=== PATIENT | male | born 1995 | race Caucasian/White ===

== ENCOUNTER 2019-02-22 11:51 | Emergency (ER) | payer MEDICAID ==
[~2019-02-22] VITALS: Ht 190.5 cm; Wt 118.2 kg
[2019-02-22 12:24] VITALS: Ht 190.5 cm; Wt 118.2 kg
[2019-02-22] MEDS ORDERED: LAMICTAL25 MG PO (12:26)
[2019-02-22] MEDS ORDERED: TORADOL10 MG PO (14:05)
[2019-02-22 14:28] VITALS: BP 117/71
== END 2019-02-22 14:29 | disposition home or self-care (01) ==
LOC: D.ER 11:51
DX: S69.91XA Unspecified injury of right wrist, hand and finger(s), initial encounter (principal); W22.8XXA Striking against or struck by other objects, initial encounter; Y93.89 Activity, other specified; Y92.89 Other specified places as the place of occurrence of the external cause; M25.531 Pain in right wrist

== ENCOUNTER 2019-03-27 03:17 | Emergency (ER) | payer MEDICAID ==
[~2019-03-27] VITALS: Ht 190.5 cm; Wt 104.5 kg
[~2019-03-27 03:17] MED LIST: LAMICTAL25 MG PO; TORADOL10 MG PO
[2019-03-27 03:21] VITALS: Ht 190.5 cm; Wt 104.5 kg
[2019-03-27] MEDS ORDERED: CLEOCIN HCL300 MG PO (04:09)
[2019-03-27] MEDS ORDERED: HYDROCODON-ACE1 EAC2 PO (04:09)
[2019-03-27 05:00] VITALS: BP 122/70
== END 2019-03-27 05:00 | disposition home or self-care (01) ==
LOC: D.ER 03:17
DX: K04.7 Periapical abscess without sinus (principal); S02.5XXA Fracture of tooth (traumatic), initial encounter for closed fracture; X58.XXXA Exposure to other specified factors, initial encounter; Y93.89 Activity, other specified; Y92.89 Other specified places as the place of occurrence of the external cause

== ENCOUNTER 2019-05-30 15:50 | Emergency (ER) | payer MEDICAID ==
[~2019-05-30] VITALS: Ht 190.5 cm; Wt 104.5 kg
[~2019-05-30 15:50] MED LIST changes: +CLEOCIN HCL300 MG PO; +HYDROCODON-ACE1 EAC2 PO
[2019-05-30 16:02] VITALS: Ht 190.5 cm; Wt 104.5 kg
[2019-05-30] MEDS ORDERED: KEFLEX500 MG PO (17:25)
[2019-05-30] MEDS ORDERED: TYLENOL W/CODEI1 TAB PO (17:25)
[2019-05-30 17:37] VITALS: BP 119/68
== END 2019-05-30 17:38 | disposition home or self-care (01) ==
LOC: D.ER 15:50
DX: S61.411A Laceration without foreign body of right hand, initial encounter (principal); W25.XXXA Contact with sharp glass, initial encounter; Y93.89 Activity, other specified; Y92.89 Other specified places as the place of occurrence of the external cause

== ENCOUNTER 2019-06-03 19:29 | Emergency (ER) | payer MEDICAID ==
[~2019-06-03] VITALS: Ht 190.5 cm; Wt 106.8 kg
[2019-06-03 19:29] VITALS: Ht 190.5 cm; Wt 106.8 kg
[~2019-06-03 19:29] MED LIST changes: +KEFLEX500 MG PO; +TYLENOL W/CODEI1 TAB PO
[2019-06-03 19:49] LABS: BASOPHILS 0.2 % (0-2); EOSINOPHILS 0.4 % (0-7); HEMATOCRIT 43.2 % (42.0-54.0); HEMOGLOBIN 15.5 g/dL (13.5-17.5); IMMATURE GRANULOCYTES 0.5 % (0-5); MCH 30.3 pg (26.0-34.0); MCHC 35.9 g/dL (31.0-37.0); MCV 84.5 fL (80.0-100.0); MEAN PLATELET VOLUME 9.8 fL (7.4-10.4); MONOCYTES 7.4 % (2-11); NEUTROPHILS 77.5 % (40-80); PLATELET COUNT 232 10x3/uL (130-400); RBC 5.11 10x6/uL (4.20-6.10); WBC 15.1 10x3/uL (4.8-10.8)
[2019-06-03 19:57] LABS: INR 1.18 (0.85-1.17); PROTIME 14.5 SECONDS (11.6-15.0)
[2019-06-03 19:58] LABS: APTT 73.7 SECONDS (22.8-39.4)
[2019-06-03 20:05] LABS: ALBUMIN 5.1 g/dL (3.4-5.0); ALKALINE PHOSPHATASE 123 U/L (46-116); ALT (SGPT) 37 U/L (10-68); BILIRUBIN - TOTAL 0.47 mg/dL (0.2-1.3); CALC OSMOLALITY 277 mosm/kg (275-300); CALCIUM 10.1 mg/dL (8.5-10.1); CARBON DIOXIDE 26.2 mmol/L (21.0-32.0); CHLORIDE - SERUM 98 mmol/L (98-107); CREATININE - SERUM 1.9 mg/dL (0.6-1.3); GLUCOSE 87 mg/dL (74-106); PROTEIN - SERUM 9.1 g/dL (6.4-8.2); SODIUM 138 mmol/L (136-145); UREA NITROGEN 21 mg/dL (7-18); eGFR NON AFRICAN AMERICAN 46 mL/min (90-120)
[2019-06-03 20:14] LABS: CKMB 0.9 U/L (0.0-3.6); CREATINE KINASE 114 UL (21-232); MAGNESIUM - SERUM 2.3 mg/dL (1.8-2.4); TROPONIN-I < 0.017 ng/mL (0.000-0.060)
[2019-06-03 22:07] LABS: COLOR YELLOW (YELLOW)
[2019-06-03 22:08] LABS: APPEARANCE CLEAR (CLEAR); BILIRUBIN NEGATIVE (NEGATIVE); GLUCOSE NEGATIVE (NEGATIVE); KETONE NEGATIVE (NEGATIVE); NITRITE NEGATIVE (NEGATIVE); PROTEIN TRACE mg/dL (NEGATIVE); SPECIFIC GRAVITY 1.025 (1.005-1.020); UROBILINOGEN NORMAL (NORMAL)
[2019-06-03 22:09] LABS: BACTERIA FEW /hpf (NONE SEEN); CALCIUM OXALATE CRYSTALS 0-5 /hpf (NONE SEEN); HYALINE CAST 0-5 /lpf (NONE SEEN); WHITE CELLS - URINE 0-5 /hpf (0-5)
[2019-06-03 22:16] LABS: UDS - AMPHET NEGATIVE QUAL (NEGATIVE); UDS - BARB NEGATIVE QUAL (NEGATIVE); UDS - BENZO NEGATIVE QUAL (NEGATIVE); UDS - COCAINE NEGATIVE QUAL (NEGATIVE); UDS - OPIATE POSITIVE QUAL (NEGATIVE); UDS - PCP NEGATIVE QUAL (NEGATIVE); UDS - THC NEGATIVE QUAL (NEGATIVE)
[2019-06-03 22:53] VITALS: BP 110/51
== END 2019-06-03 22:53 | disposition home or self-care (01) ==
LOC: D.ER 19:29
PROVIDERS: Family Medicine
DX: E86.0 Dehydration (principal); T67.8XXA Other effects of heat and light, initial encounter; X58.XXXA Exposure to other specified factors, initial encounter; Y93.89 Activity, other specified; Y92.89 Other specified places as the place of occurrence of the external cause; R07.81 Pleurodynia

== ENCOUNTER 2019-09-15 01:01 | Observation (INO) | payer MEDICAID ==
[~2019-09-15] VITALS: Ht 190.5 cm; Wt 127.3 kg
[2019-09-15] MEDS ORDERED: TEGRETOL200 MG PO (01:07)
[2019-09-15] MEDS ORDERED: ATARAX 25 MG TA25 MG PO (01:08)
[2019-09-15] MEDS ORDERED: [UNRECOGNIZED DRUG - REMARK] (01:08)
[2019-09-15 01:42] LABS: BASOPHILS 0.6 % (0-2); HEMATOCRIT 44.4 % (42.0-54.0); HEMOGLOBIN 14.9 g/dL (13.5-17.5); IMMATURE GRANULOCYTES 0.6 % (0-5); LYMPHOCYTES 29.4 % (15-50); MCH 29.4 pg (26.0-34.0); MCHC 33.6 g/dL (31.0-37.0); MCV 87.7 fL (80.0-100.0); MEAN PLATELET VOLUME 9.6 fL (7.4-10.4); MONOCYTES 9.4 % (2-11); PLATELET COUNT 214 10x3/uL (130-400); RBC 5.06 10x6/uL (4.20-6.10); RDW 12.6 % (11.5-14.5); WBC 8.4 10x3/uL (4.8-10.8)
[2019-09-15 01:53] LABS: CALC OSMOLALITY 276 mosm/kg (275-300); CALCIUM 8.2 mg/dL (8.5-10.1); CARBON DIOXIDE 27.9 mmol/L (21.0-32.0); CHLORIDE - SERUM 105 mmol/L (98-107); CREATININE - SERUM 0.8 mg/dL (0.6-1.3); GLUCOSE 84 mg/dL (74-106); POTASSIUM - SERUM 4.2 mmol/L (3.5-5.1); SODIUM 140 mmol/L (136-145); UREA NITROGEN 11 mg/dL (7-18); eGFR NON AFRICAN AMERICAN > 90 mL/min (90-120)
[2019-09-15 01:56] LABS: APTT 30.1 SECONDS (22.8-39.4); INR 1.03 (0.85-1.17)
[2019-09-15 01:59] LABS: ALBUMIN 3.8 g/dL (3.4-5.0); ALKALINE PHOSPHATASE 110 U/L (46-116); ALT (SGPT) 65 U/L (10-68); AMYLASE - SERUM 59 U/L (25-115); BILIRUBIN - TOTAL 0.12 mg/dL (0.2-1.3); LIPASE 115 U/L (73-393); PROTEIN - SERUM 7.3 g/dL (6.4-8.2)
--- NOTE | 2019-09-15 02:55 | NUR ---
DR BURNS NOTIFIED AND REVIEWED PT'S BEHAVIOR AND ASSESSMENT RESULTS. PT IS A LOW RISK PER DR BURNS. DR BURNS STATED TO GIVE RESOURCES TO PT AT TIME OF DISCHARGE. NO FURTHER ORDERS AT THIS TIME. RSOURCES REVIEWED WITH PT AND HE VERBALIZED UNDERSTANDING.
[2019-09-15 05:07] VITALS: BP 127/74; Ht 190.5 cm; Wt 127.3 kg
[2019-09-15 05:08] LABS: APPEARANCE CLEAR (CLEAR); COLOR YELLOW (YELLOW); SPECIFIC GRAVITY 1.015 (1.005-1.020)
[2019-09-15 05:09] LABS: BILIRUBIN NEGATIVE (NEGATIVE); GLUCOSE NEGATIVE (NEGATIVE); KETONE NEGATIVE (NEGATIVE); NITRITE NEGATIVE (NEGATIVE); PROTEIN NEGATIVE (NEGATIVE); UROBILINOGEN NORMAL (NORMAL)
--- NOTE | 2019-09-15 05:23 | NUR ---
PT ARRIVED TO THE FLOOR. ALERT AND ORIENTED. NO SIGNS OF DISTRESS. BREATHING EVEN AND UNLABORED. IV SITE RT FA DRESSING CLEAN DRY AND INTACT. NO SIGNS OF INFECTION OR INFULTRATION. LUNG SOUNDS CLEAR. BOWEL SOUNDS ACTIVE. PT STATES LOWER ABD TENDERNESS. ABD DISTENDED. NO LOWER LEG SWELLING PRESENT. WILL CONTINUE PLAN OF CARE CALL LIGHT IN REACH. BED LOWERED AND LOCKED. BED RAILS UPX1.
[2019-09-15 05:34] VITALS: BP 127/74
--- NOTE | 2019-09-15 07:10 | NUR ---
PT RESTING IN BED. NO SIGNS OF DISTRESS. IV TO RIGHT FORARM PATENT NO REDNESS OR TENDERNESS. DENIES ANY FURTHER NEED AT THIS TIME. CALL LIGHT IN REACH. BED LOW POSITION. NO FAMILY AT BEDSIDE AT THIS TIME.
[2019-09-15 08:49] VITALS: BP 100/58
[2019-09-15] MEDS ORDERED: MIRALAX17 GM PO (12:11)
[2019-09-15 12:18] LABS: UDS - AMPHET NEGATIVE QUAL (NEGATIVE); UDS - BARB NEGATIVE QUAL (NEGATIVE); UDS - BENZO NEGATIVE QUAL (NEGATIVE); UDS - COCAINE NEGATIVE QUAL (NEGATIVE); UDS - OPIATE NEGATIVE QUAL (NEGATIVE); UDS - PCP NEGATIVE QUAL (NEGATIVE); UDS - THC NEGATIVE QUAL (NEGATIVE)
[2019-09-15 12:46] VITALS: BP 111/66
--- NOTE | 2019-09-15 14:47 | NUR ---
I have reviewed this patient and I concur with the Shift Assessment completed by the Licensed Practical Nurse today this shift.
--- NOTE | 2019-09-15 15:53 | NUR ---
DISCHARGE INSTRCUTIONS GIVEN. SEEMS TO UNDERSTAND INSTRUCTIONS. IV OUT TIP INTACT. LEFT WITH HOSPITAL STAFF TO GO HOME NO SIGNS OF DISTRESS.
--- NOTE | 2019-09-16 12:41 | MORECARE ---
CASE MANAGEMENT DISCHARGE SUMMARY PATIENT: DANII ALBERTO UNIT: [id number] ADM DATE: 09/15/19 AGE: 23 : [birth year] SEX: M ROOM/BED: D.2221 AUTHOR: PHILIP SCHERER PHYSICIAN: REFERRING PHYSICIAN: RADHA ALEXANDRE MD DATE OF SERVICE: 09/16/19 Discharge Plan Patient Name: DANII ALBERTO [facility] [facility] 1995 Planned Disposition: Anticipated Discharge Date: Discharge Date: 09/15/2019 Expected LOS: 0 Initial Reviewer: [email or web address] Initial Review Date: 09/16/2019 Generated: 09/16/19 1:41 pm Patient Name: DANII ALBERTO Page [id number] at 1241 All edits/amendments must be made on the electronic document DICTATION DATE: 09/16/19 1241 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
== END 2019-09-15 15:54 | disposition home or self-care (01) ==
LOC: D.ER 01:01 → OBSVTIME 03:58 → D.MS 03:58
PROVIDERS: Family Medicine; ADMIT Internal Medicine Nephrology; ATTEND Internal Medicine Nephrology
DX: K62.89 Other specified diseases of anus and rectum (principal); F63.81 Intermittent explosive disorder; R19.5 Other fecal abnormalities

== ENCOUNTER 2019-10-23 14:02 | Emergency (ER) | payer OTHER ==
[~2019-10-23] VITALS: Ht 190.5 cm; Wt 129.5 kg
[~2019-10-23 14:02] MED LIST changes: +ATARAX 25 MG TA25 MG PO; +MIRALAX17 GM PO; +TEGRETOL200 MG PO; +[UNRECOGNIZED DRUG - REMARK]
[2019-10-23 14:20] VITALS: Ht 190.5 cm; Wt 129.5 kg
[2019-10-23] MEDS ORDERED: GABAPENTIN100 MG PO (15:35)
[2019-10-23 16:06] VITALS: BP 124/67
== END 2019-10-23 16:06 | disposition home or self-care (01) ==
LOC: D.ER 14:02
DX: G89.29 Other chronic pain (principal); M79.641 Pain in right hand; Z87.898 Personal history of other specified conditions

== ENCOUNTER 2019-11-28 17:48 | Emergency (ER) | payer SELFPAY ==
[~2019-11-28] VITALS: Ht 190.5 cm; Wt 127.3 kg
[~2019-11-28 17:48] MED LIST changes: +GABAPENTIN100 MG PO; +LIORESAL 10 MG10 MG PO; +PROPRANOLOL HCL20 MG PO; +SEROQUEL50 MG PO
[2019-11-28 18:10] VITALS: Ht 190.5 cm; Wt 127.3 kg
[2019-11-28] MEDS ORDERED: TYLENOL W/CODEI1 TAB PO (19:37)
[2019-11-28 19:56] VITALS: BP 132/84
== END 2019-11-28 19:44 | disposition home or self-care (01) ==
LOC: D.ER 17:48
DX: S60.222A Contusion of left hand, initial encounter (principal); X58.XXXA Exposure to other specified factors, initial encounter; M79.642 Pain in left hand

== ENCOUNTER → 2019-12-04 | Emergency (ER) | payer OTHER ==
[~2019-12-04] VITALS: Ht 190.5 cm; Wt 130.0 kg
[~2019-12-04] MED LIST changes: +HYDROCODON-ACE1 EAC7 PO
[2019-12-04 13:25] VITALS: Ht 190.5 cm; Wt 130.0 kg
[2019-12-04 14:16] LABS: CALC OSMOLALITY 279 mosm/kg (275-300); CARBON DIOXIDE 27.4 mmol/L (21.0-32.0); CHLORIDE - SERUM 104 mmol/L (98-107); CREATININE - SERUM 0.8 mg/dL (0.6-1.3); GLUCOSE 92 mg/dL (74-106); POTASSIUM - SERUM 3.9 mmol/L (3.5-5.1); SODIUM 140 mmol/L (136-145); UREA NITROGEN 16 mg/dL (7-18); eGFR NON AFRICAN AMERICAN > 90 mL/min (90-120)
[2019-12-04 14:29] LABS: ALBUMIN 4.3 g/dL (3.4-5.0); ALKALINE PHOSPHATASE 163 U/L (30-120); ALT (SGPT) 24 U/L (10-68); BILIRUBIN - TOTAL 0.45 mg/dL (0.2-1.3); CREATINE KINASE 121 UL (21-232); PRO BNP 10 pg/mL (0-125); TROPONIN-I < 0.017 ng/mL (0.000-0.060)
[2019-12-04 14:47] LABS: BASOPHILS 0.4 % (0-2); EOSINOPHILS 0.5 % (0-7); HEMATOCRIT 43.9 % (42.0-54.0); IMMATURE GRANULOCYTES 0.2 % (0-5); LYMPHOCYTES 20.3 % (15-50); MCH 29.9 pg (26.0-34.0); MCHC 34.2 g/dL (31.0-37.0); MCV 87.5 fL (80.0-100.0); MEAN PLATELET VOLUME 9.9 fL (7.4-10.4); MONOCYTES 9.5 % (2-11); NEUTROPHILS 69.1 % (40-80); PLATELET COUNT 235 10x3/uL (130-400); RBC 5.02 10x6/uL (4.20-6.10); RDW 13.6 % (11.5-14.5); WBC 11.1 10x3/uL (4.8-10.8)
[2019-12-04 14:48] VITALS: BP 117/66
== END | disposition home or self-care (01) ==
LOC: D.ER 13:21
PROVIDERS: Emergency Medicine
DX: R07.89 Other chest pain (principal); R00.1 Bradycardia, unspecified; I10 Essential (primary) hypertension; I25.2 Old myocardial infarction; R10.13 Epigastric pain

== ENCOUNTER 2019-12-12 22:29 | Emergency (ER) | payer OTHER ==
[~2019-12-12] VITALS: Ht 190.5 cm; Wt 125.0 kg
[2019-12-12 23:12] VITALS: Ht 190.5 cm; Wt 125.0 kg
[2019-12-13] MEDS ORDERED: EC-NAPROSYN500 MG PO (00:32)
[2019-12-13 00:39] VITALS: BP 132/89
== END 2019-12-13 00:39 | disposition home or self-care (01) ==
LOC: D.ER 22:29
DX: G89.29 Other chronic pain (principal); M54.2 Cervicalgia; R25.2 Cramp and spasm; G62.9 Polyneuropathy, unspecified

== ENCOUNTER 2020-12-07 21:43 | Emergency (ER) | payer OTHER ==
[~2020-12-07] VITALS: Ht 190.5 cm; Wt 118.2 kg
[~2020-12-07 21:43] MED LIST changes: +EC-NAPROSYN500 MG PO
[2020-12-07 21:50] VITALS: Ht 190.5 cm; Wt 118.2 kg
[2020-12-07] MEDS ORDERED: NAPROSYN500 MG PO (23:53)
[2020-12-08 00:15] VITALS: BP 132/77
== END 2020-12-08 00:15 | disposition home or self-care (01) ==
LOC: D.ER 21:43
DX: M54.2 Cervicalgia (principal); M54.9 Dorsalgia, unspecified; G89.29 Other chronic pain; R20.0 Anesthesia of skin; G62.9 Polyneuropathy, unspecified

== ENCOUNTER 2021-01-30 21:32 | Emergency (ER) | payer OTHER ==
[~2021-01-30] VITALS: Ht 190.5 cm; Wt 129.5 kg
[~2021-01-30 21:32] MED LIST changes: +HYDROCODON-ACE1 EA10 PO; +IBUPROFEN800 MG PO; +MEDROL DOSE PACK4 MG PO; +NAPROSYN500 MG PO
[2021-01-30 22:01] VITALS: Ht 190.5 cm; Wt 129.5 kg
[2021-01-30] MEDS ORDERED: ZANAFLEX4 MG PO (22:27)
[2021-01-30] MEDS ORDERED: MEDROL DOSE PACK4 MG PO (22:27)
[2021-01-30 23:09] VITALS: BP 134/76
== END 2021-01-30 23:08 | disposition home or self-care (01) ==
LOC: D.ER 21:32
DX: M54.2 Cervicalgia (principal); M62.838 Other muscle spasm; I10 Essential (primary) hypertension; G62.9 Polyneuropathy, unspecified

== ENCOUNTER 2021-02-19 20:45 | Emergency (ER) | payer OTHER ==
[2021-01-30 22:01] VITALS: BMI 35.6
[~2021-02-19 20:45] MED LIST changes: +ZANAFLEX4 MG PO
== END 2021-02-20 00:56 | disposition left against medical advice (07) ==
LOC: D.ER 20:45
DX: S69.91XA Unspecified injury of right wrist, hand and finger(s), initial encounter (principal)